=== PATIENT | male | born 1945 | race Caucasian/White ===

== ENCOUNTER 2018-04-10 14:23 | Observation (INO) | payer SELFPAY ==
[2018-04-10 14:23] VITALS: BMI 25.9
[2018-04-10 15:30] LABS: BASO # 0.1 K/uL (0.0-0.2); BASO % 1.2 % (0.0-2.0); EOS # 0.1 K/uL (0.0-0.7); EOS % 1.4 % (0.0-4.0); HEMOGLOBIN 10.1 g/dL (12.0-18.0); LYMPH # 0.6 K/uL (1.0-4.3); LYMPH % 10.6 % (20.0-40.0); MEAN CORPUSCULAR HEMOGLOBIN 26.8 pg (27.0-31.0); MEAN CORPUSCULAR HGB CONC 32.3 g/dL (33.0-37.0); MEAN PLATELET VOLUME 7.8 fl (7.2-11.7); MONO # 0.8 K/uL (0.0-0.8); MONO % 13.7 % (0.0-10.0); NEUT # 4.4 K/uL (1.8-7.0); NEUT % 73.1 % (50.0-75.0); RBC 3.77 Mil/uL (4.40-5.90); RED CELL DISTRIBUTION WIDTH 15.2 % (11.5-14.5)
[2018-04-10 15:36] LABS: MEAN CELL VOLUME 82.9 fl (80.0-94.0)
[2018-04-10 15:37] LABS: INR 1.1; PROTHROMBIN TIME 12.4 Seconds (9.8-13.1)
[2018-04-10 15:39] LABS: PARTIAL THROMBOPLASTIN TIME 35.7 Seconds (25.6-37.1)
[2018-04-10 15:43] LABS: ALB/GLOB RATIO 0.7 (1.0-2.1); ALBUMIN 3.8 g/dL (3.5-5.0); ALT/SGPT 199 U/L (21-72); AST/SGOT 117 U/L (17-59); BLOOD UREA NITROGEN 35 mg/dl (9-20); CALCIUM 9.2 mg/dL (8.4-10.2); GFR NON-AFRICAN AMERICAN > 60
[2018-04-10 15:54] LABS: B-TYPE NATRIURETIC PEPTIDE 67.9 pg/ml (0-900)
[2018-04-10] MEDS ORDERED: Albuterol-Ipratrop 3 mg / 0.5 (3 ml) UD INH STA (16:08)
--- NOTE | 2018-04-10 16:17 | RAD ---
Date of service: 04/10/2018 HISTORY: SOB COMPARISON: No prior. FINDINGS: LUNGS: No active pulmonary disease. PLEURA: No significant pleural effusion identified, no pneumothorax apparent. CARDIOVASCULAR: No atherosclerotic calcification present No radiographic findings to suggest acute or significant cardiovascular disease. OSSEOUS STRUCTURES: No significant abnormalities. VISUALIZED UPPER ABDOMEN: Normal. OTHER FINDINGS: None. IMPRESSION: No active disease.
[2018-04-10] MEDS ORDERED: Sodium Chloride 0.9% 50 ML IV ONE (16:44)
[2018-04-10] MEDS ORDERED: Iodixanol 320 MG/ML 100 ML BOTTLE IV ONE (16:44)
--- NOTE | 2018-04-10 17:23 | CT ---
Date of service: 04/10/2018 PROCEDURE: CT Chest with contrast (Pulmonary Angiogram) HISTORY: dyspnea COMPARISON: None available. TECHNIQUE: Axial computed tomography images were obtained of the chest in the pulmonary arterial phase of enhancement. Coronal and sagittal reformatted images were created and reviewed. Maximum intensity projection (MIP) reconstructed images in the following planes: Sagittal and coronal Intravenous contrast dose: 80 cc Visipaque 320. Mean Hounsfield value in the main pulmonary artery: 372.4 C row Radiation dose: Total exam DLP = 243.79 mGy-cm. This CT exam was performed using one or more of the following dose reduction techniques: Automated exposure control, adjustment of the mA and/or kV according to patient size, and/or use of iterative reconstruction technique. FINDINGS: PULMONARY ARTERIES: Unremarkable. No pulmonary embolism. AORTA: No acute findings. No thoracic aortic aneurysm. No atherosclerotic calcification or mural plaque present. LUNGS: Unremarkable. No nodule, mass or pulmonary consolidation. PLEURAL SPACES: Unremarkable. No effusion or pneumothorax. HEART: Unremarkable. No cardiomegaly. No significant pericardial effusion. LYMPH NODES: No lymphadenopathy. BONES, CHEST WALL: Unremarkable. No fracture or destructive lesion OTHER FINDINGS: Unremarkable. IMPRESSION: Unremarkable CT pulmonary angiogram. No pulmonary embolus.
--- NOTE | 2018-04-10 17:48 | ED PDOC ---
HPI: SOB/CHF/COPD Time Seen by Provider: 04/10/18 14:36 Chief Complaint (Nursing): Shortness Of Breath Chief Complaint (Provider): SOB History Per: Patient, Hand Reamer (Celeste Quinones) Onset/Duration Of Symptoms: Days (3), Gradual Current Symptoms Are (Timing): Still Present Quality: Tightness Exacerbating Factor(s): Exertion, Coughing Current Respiratory Medications: None Severity: Severe Associated Symptoms: Chest Pain, Dizziness. denies: Chills, Productive Cough, Musle Spasms In Hands Or Feet Recently: Hospitalized Additional Complaint(s): 72yo male hx HIV not on medications presents c/o SOB ongoing and worsening for several days. EMS brought paperwork discharge packet from [facility] where he was discharged several days ago with Rx he never filled- spironolactone, ACEI, albuterol, but patient poor historian and hes unaware he needed to fill medications. He admits to mild cough denies hemoptysis, orthopnea or edema. Admits to hx HIV x20yrs hasnt taken meds in >1 years. Arrives w indwelling holley cath and fresh scar to RL groin for ? procedure recently. Past Medical History Reviewed: Historical Data, Nursing Documentation, Vital Signs Vital Signs: Last Vital Signs Temp 98.1 F 04/10/18 14:31 Pulse 87 04/10/18 16:52 Resp 20 04/10/18 16:52 BP 130/78 04/10/18 16:52 Pulse Ox 98 04/10/18 16:52 - Medical History PMH: HIV (Untreated) Denies: CAD, CHF - Surgical History Surgical History: No Surg Hx - Family History Family History: States: Unknown Family Hx - Living Arrangements Living Arrangements: Alone - Social History Current smoker - smoking cessation education provided: Yes Drugs: Denies - Home Medications Home Medications: Ambulatory Orders Medication Instructions Recorded Aspirin [Ecotrin] 81 mg PO DAILY 04/10/18 Carvedilol [Coreg] 6.25 mg PO Q8 04/10/18 Cyanocobalamin [Vitamin B12 1000 1,000 mcg PO DAILY 04/10/18 mcg Tab] Folic Acid 1 mg PO DAILY 04/10/18 Lisinopril [Zestril] 20 mg PO Q12 04/10/18 Spironolactone [Aldactone] 12.5 mg PO DAILY 04/10/18 Sulfamethoxazole/Trimethoprim 1 tab PO MWF 04/10/18 [Bactrim DS Tab] Thiamine [Vitamin B1 Tab] 100 mg PO DAILY 04/10/18 - Allergies Allergies/Adverse Reactions: Allergies Allergy/AdvReac Type Severity Reaction Status Date / Time No Known Allergies Allergy Unverified 04/10/18 14:31 Review of Systems Constitutional: Positive for: Weakness, Malaise. Negative for: Fever ENT: Negative for: Ear Pain, Throat Pain Cardiovascular: Negative for: Chest Pain Respiratory: Positive for: Cough, Shortness of Breath, SOB with Exertion Gastrointestinal: Negative for: Abdominal Pain Genitourinary Male: Negative for: Dysuria Musculoskeletal: Negative for: Neck Pain, Shoulder Pain Skin: Negative for: Rash, Lesions, Jaundice Neurological: Negative for: Weakness, Numbness, Headache Psych: Negative for: Anxiety Physical Exam - Reviewed Nursing Documentation Reviewed: Yes Vital Signs Reviewed: Yes - Physical Exam Appears: Positive for: Well, Non-toxic, No Acute Distress Head Exam: Positive for: ATRAUMATIC, NORMAL INSPECTION, NORMOCEPHALIC Skin: Positive for: Normal Color, Warm, DRY Eye Exam: Positive for: EOMI, Normal appearance, PERRL ENT: Positive for: Normal ENT Inspection Neck: Positive for: Normal, Painless ROM Cardiovascular/Chest: Positive for: Regular Rate, Rhythm Respiratory: Positive for: Decreased Breath Sounds, Wheezing. Negative for: Respiratory Distress Gastrointestinal/Abdominal: Positive for: Normal Exam, Soft Back: Positive for: Normal Inspection Extremity: Positive for: Normal ROM Neurologic/Psych: Positive for: Alert, Oriented - Laboratory Results Result Diagrams: 04/10/18 15:25 04/10/18 15:25 - ECG O2 Sat by Pulse Oximetry: 98 Medical Decision Making Medical Decision Making: Prior charts reviewed last visit Dr Vega 2016, d/w Dr vega rec admitting to FP service if requires. Workup for dyspnea initiated w hx HIV noncompliant meds, tachycardia. Albuterol ordered w some improvement of tachycardia and dyspnea. In paperwork from [facility] ? hx aortic stent placed but patient unaware of procedure he has indwelling [facility] unclear if patient supposed to be on anticoagulation after aortic device place? admit Dr butler obs tele given tachycardia, dyspnea, hx HIV. No PNA on CT Accession No. : [id number] Patient Name / ID : NIMESH HUNT / [id number] Exam Date : 04/10/2018 16:54:44 ( Approved ) Study Comment : Sex / Age : M / [id number] Creator : Carlos Alberto Pierre MD Dictator : Carlos Alberto Pierre MD Lead Presser : Officer Captain : Carlos Alberto Pierre MD Approver2 : Report Date : 04/10/2018 17:19:18 My Comment : Date of service: 04/10/2018 PROCEDURE: CT Chest with contrast (Pulmonary Angiogram) HISTORY: dyspnea COMPARISON: None available. TECHNIQUE: Axial computed tomography images were obtained of the chest in the pulmonary arterial phase of enhancement. Coronal and sagittal reformatted images were created and reviewed. Maximum intensity projection (MIP) reconstructed images in the following planes: Sagittal and coronal Intravenous contrast dose: 80 cc Visipaque 320. Mean Hounsfield value in the main pulmonary artery: 372.4 C row Radiation dose: Total exam DLP = 243.79 mGy-cm. This CT exam was performed using one or more of the following dose reduction techniques: Automated exposure control, adjustment of the mA and/or kV according to patient size, and/or use of iterative reconstruction technique. FINDINGS: PULMONARY ARTERIES: Unremarkable. No pulmonary embolism. AORTA: No acute findings. No thoracic aortic aneurysm. No atherosclerotic calcification or mural plaque present. LUNGS: Unremarkable. No nodule, mass or pulmonary consolidation. PLEURAL SPACES: Unremarkable. No effusion or pneumothorax. HEART: Unremarkable. No cardiomegaly. No significant pericardial effusion. LYMPH NODES: No lymphadenopathy. BONES, CHEST WALL: Unremarkable. No fracture or destructive lesion OTHER FINDINGS: Unremarkable. IMPRESSION: Unremarkable CT pulmonary angiogram. No pulmonary embolus. --- Disposition - Clinical Impression Clinical Impression: Dyspnea, HIV (human immunodeficiency virus infection) - Patient ED Disposition Is Patient to be Admitted: Yes - Disposition Disposition Time: 17:15 Condition: FAIR Forms: [place] (Wallisian) - Pt Status Changed To: Hospital Disposition Of: Observation - POA Present On Arrival: None
[2018-04-10] MEDS ORDERED: Albuterol-Ipratrop 3 mg / 0.5 (3 ml) UD ONE (18:11)
[2018-04-10] MEDS ORDERED: Albuterol-Ipratrop 3 mg / 0.5 (3 ml) UD INH PRN (18:34)
--- NOTE | 2018-04-10 18:56 | CP.PCM.HP ---
<HawthorneTyroneabdirizak - Last Filed: 04/10/18 18:36> History of Present Illness - History of Present Illness History of Present Illness: 72 year old male with pmh of HIV presented to ED with complaints of dyspnea and constipation. Patient endorses dyspnea that began earlier today prompting to call EMS. He no longer feels short of breath. NO chest pain or pressure, no nausea or vomiting. His constipation has been ongoing for past 3 days, but he denies any abdominal pain. Unable to endorse if this is chronic. Patient was admitted to [facility] for about 1 month and discharged 3 days ago. HE states he was admitted for syncopal episode but does not know what any of the discharge instructions were. He states he has holley catheter that has been in place since his admission to the hospital, denies any history of urinary problems. No current urinary symptoms. He does not know of any other medical conditions he has. Pt is a poor historian. He was last seen in [facility] by Dr. Silver in 2015 after review of outpatient chart. Patient states he last saw PMD 3 months ago and has been off his medications due to loss of insurance. Discharge paper work from [facility] reviewed: Dx include Abdominal Aortic Aneurysm, Syncope, Urinary Retention Present on Admission - Present on Admission Any Indicators Present on Admission: No Review of Systems - Review of Systems Systems not reviewed;Unavailable: Other - Constitutional Constitutional: absent: Chills, Fever - EENT Eyes: absent: Blurred Vision, Change in Vision Nose/Mouth/Throat: absent: Nasal Congestion, Nasal Discharge - Cardiovascular Cardiovascular: Dyspnea. absent: Chest Pain - Respiratory Respiratory: Dyspnea. absent: Cough, Wheezing, Chest Congestion, Other - Gastrointestinal Gastrointestinal: Constipation. absent: Abdominal Pain, Nausea, Vomiting - Genitourinary Genitourinary: Other (has holley) Past Patient History - Infectious Disease Hx of Infectious Diseases: None - Past Social History Smoking Status: Heavy Smoker > 10 Cigarettes Daily Alcohol: Occasional Drugs: Denies - CARDIAC Hx Congestive Heart Failure: No - HEMATOLOGICAL/ONCOLOGICAL Hx Human Immunodeficiency Virus (HIV): Yes (Untreated) - PSYCHIATRIC Hx Substance Use: No - ANESTHESIA Hx Anesthesia: No Meds Allergies/Adverse Reactions: Allergies Allergy/AdvReac Type Severity Reaction Status Date / Time No Known Allergies Allergy Unverified 04/10/18 14:31 Physical Exam - Constitutional Appears: Non-toxic - Head Exam Head Exam: ATRAUMATIC, NORMAL INSPECTION, NORMOCEPHALIC - Eye Exam Eye Exam: Normal appearance - Respiratory Exam Respiratory Exam: Decreased Breath Sounds, Clear to Auscultation Bilateral Additional comments: mildy tachypneic and dyspneic - Cardiovascular Exam Cardiovascular Exam: REGULAR RHYTHM, +S1, +S2 - GI/Abdominal Exam GI & Abdominal Exam: Hypoactive Bowel Sounds, Soft. absent: Distended, Guarding, Tenderness - Exam Additional comments: holley catheter in place - Extremities Exam Extremities exam: Negative for: pedal edema, tenderness - Psychiatric Exam Psychiatric exam: Normal Affect, Normal Mood - Skin Skin Exam: Dry, Intact, Normal Color Results - Vital Signs Recent Vital Signs: Last Vital Signs Temp 98.1 F 04/10/18 14:31 Pulse 87 04/10/18 16:52 Resp 20 04/10/18 16:52 BP 130/78 04/10/18 16:52 Pulse Ox 98 04/10/18 17:57 - Labs Result Diagrams: 04/10/18 15:25 04/10/18 15:25 Labs: Laboratory Results - last 24 hr 04/10/18 04/10/18 04/10/18 15:25 15:25 15:25 WBC 6.0 RBC 3.77 L Hgb 10.1 L Hct 31.2 L MCV 82.9 D MCH 26.8 L MCHC 32.3 L RDW 15.2 H Plt Count 318 D MPV 7.8 Neut % (Auto) 73.1 Lymph % (Auto) 10.6 L [place] % (Auto) 13.7 H Eos % (Auto) 1.4 Baso % (Auto) 1.2 Neut # (Auto) 4.4 Lymph # (Auto) 0.6 L [place] # (Auto) 0.8 Eos # (Auto) 0.1 Baso # (Auto) 0.1 PT 12.4 INR 1.1 APTT 35.7 Sodium 138 Potassium 4.8 Chloride 107 Carbon Dioxide 21 L Anion Gap 15 BUN 35 H Creatinine 0.9 Est GFR ( Amer) > 60 Est GFR (Non-Af Amer) > 60 Random Glucose 69 L Calcium 9.2 Total Bilirubin 0.2 AST 117 H ALT 199 H D Alkaline Phosphatase 106 Troponin I 0.0160 NT-Pro-B Natriuret Pep 67.9 Total Protein 8.8 H Albumin 3.8 Globulin 5.0 H Albumin/Globulin Ratio 0.7 L Assessment & Plan - Assessment and Plan (Free Text) Assessment: 72 year old male presented with dyspnea and constipation, admitted for dyspnea, rule out CHF. Given smoking history COPD is in differential. He is afebrile, hemodynamically stable. Will request records from [facility] given pts history of AAA. # Dyspnea # Transaminitis # Constipation # Normocytic Anemia # Urinary Retention # HIV # DVT Prophylaxis -Echo ordered to eval dyspnea -Duonebs q4 -Miralax qhs -Urology consult for urinary retention/holley management. -Resume home medications -will check CD4 count -Lovenox 40 SC daily -Monitor LFTs Patient seen and examined with attending. <Aden Reynaga D - Last Filed: 04/11/18 11:52> Results - Vital Signs Recent Vital Signs: Last Vital Signs Temp 97.6 F 04/11/18 08:25 Pulse 72 04/11/18 10:23 Resp 18 04/11/18 08:25 BP 117/72 04/11/18 10:23 Pulse Ox 96 04/11/18 08:25 - Labs Result Diagrams: 04/11/18 06:00 04/11/18 06:00 Labs: Laboratory Results - last 24 hr 04/10/18 04/10/18 04/10/18 15:25 15:25 15:25 WBC 6.0 RBC 3.77 L Hgb 10.1 L Hct 31.2 L MCV 82.9 D MCH 26.8 L MCHC 32.3 L RDW 15.2 H Plt Count 318 D MPV 7.8 Neut % (Auto) 73.1 Lymph % (Auto) 10.6 L [place] % (Auto) 13.7 H Eos % (Auto) 1.4 Baso % (Auto) 1.2 Neut # (Auto) 4.4 Lymph # (Auto) 0.6 L [place] # (Auto) 0.8 Eos # (Auto) 0.1 Baso # (Auto) 0.1 PT 12.4 INR 1.1 APTT 35.7 Sodium 138 Potassium 4.8 Chloride 107 Carbon Dioxide 21 L Anion Gap 15 BUN 35 H Creatinine 0.9 Est GFR ( Amer) > 60 Est GFR (Non-Af Amer) > 60 Random Glucose 69 L Calcium 9.2 Total Bilirubin 0.2 AST 117 H ALT 199 H D Alkaline Phosphatase 106 Troponin I 0.0160 NT-Pro-B Natriuret Pep 67.9 Total Protein 8.8 H Albumin 3.8 Globulin 5.0 H Albumin/Globulin Ratio 0.7 L Triglycerides Cholesterol LDL Cholesterol Direct HDL Cholesterol 04/11/18 04/11/18 06:00 06:00 WBC 4.8 RBC 3.40 L Hgb 9.1 L Hct 28.1 L MCV 82.5 MCH 26.9 L MCHC 32.5 L RDW 15.4 H Plt Count 302 MPV 7.5 Neut % (Auto) 72.4 Lymph % (Auto) 11.8 L [place] % (Auto) 12.9 H Eos % (Auto) 2.0 Baso % (Auto) 0.9 Neut # (Auto) 3.5 Lymph # (Auto) 0.6 L [place] # (Auto) 0.6 Eos # (Auto) 0.1 Baso # (Auto) 0.0 PT INR APTT Sodium 136 Potassium 4.7 Chloride 104 Carbon Dioxide 26 Anion Gap 11 BUN 30 H Creatinine 0.8 Est GFR ( Amer) > 60 Est GFR (Non-Af Amer) > 60 Random Glucose 82 Calcium 8.8 Total Bilirubin 0.2 AST 107 H ALT 142 H D Alkaline Phosphatase 82 Troponin I NT-Pro-B Natriuret Pep Total Protein 8.0 Albumin 3.4 L Globulin 4.6 H Albumin/Globulin Ratio 0.7 L Triglycerides 60 Cholesterol 139 LDL Cholesterol Direct 96 HDL Cholesterol 27 L Attending/Attestation - Attestation I have personally seen and examined this patient.: Yes I have fully participated in the care of the patient.: Yes I have reviewed all pertinent clinical information: Yes Notes (Text): 04/11/18 11:51 Patient seen and examined with resident. Case discussed and agreed with ass essment and plan of management.
[2018-04-11 07:56] LABS: BASO % 0.9 % (0.0-2.0); EOS # 0.1 K/uL (0.0-0.7); HEMOGLOBIN 9.1 g/dL (12.0-18.0); LYMPH # 0.6 K/uL (1.0-4.3); LYMPH % 11.8 % (20.0-40.0); MEAN CELL VOLUME 82.5 fl (80.0-94.0); MEAN CORPUSCULAR HEMOGLOBIN 26.9 pg (27.0-31.0); MEAN CORPUSCULAR HGB CONC 32.5 g/dL (33.0-37.0); MEAN PLATELET VOLUME 7.5 fl (7.2-11.7); MONO # 0.6 K/uL (0.0-0.8); MONO % 12.9 % (0.0-10.0); NEUT # 3.5 K/uL (1.8-7.0); NEUT % 72.4 % (50.0-75.0); RBC 3.4 Mil/uL (4.40-5.90); RED CELL DISTRIBUTION WIDTH 15.4 % (11.5-14.5); WHITE BLOOD COUNT 4.8 K/uL (4.8-10.8)
[2018-04-11] MEDS ORDERED: Pantoprazole 40 mg EC Tab PO SCH (09:00)
[2018-04-11] MEDS ORDERED: Enoxaparin 40 mg Syringe SC SCH (09:00)
[2018-04-11 09:20] LABS: ALB/GLOB RATIO 0.7 (1.0-2.1); ALBUMIN 3.4 g/dL (3.5-5.0); ALT/SGPT 142 U/L (21-72); AST/SGOT 107 U/L (17-59); BLOOD UREA NITROGEN 30 mg/dl (9-20); CALCIUM 8.8 mg/dL (8.4-10.2); GFR NON-AFRICAN AMERICAN > 60; HDL CHOLESTEROL 27 MG/DL (30-70)
[2018-04-11 09:28] LABS: LDL CHOLESTEROL 96 mg/dL (0-129)
--- NOTE | 2018-04-11 11:12 | CP.PCM.DIS ---
<Angus Harper - Last Filed: 04/11/18 13:16> Provider - Provider Date of Admission: 04/10/18 17:44 Attending physician: Aden Reynaga MD Time Spent in preparation of Discharge (in minutes): 20 Diagnosis - Discharge Diagnosis (1) HIV (human immunodeficiency virus infection) Status: Chronic (2) Dyspnea Status: Resolved Hospital Course - Lab Results Lab Results: Most Recent Lab Values WBC 4.8 K/uL (4.8-10.8) 04/11/18 06:00 RBC 3.40 Mil/uL (4.40-5.90) L 04/11/18 06:00 Hgb 9.1 g/dL (12.0-18.0) L 04/11/18 06:00 Hct 28.1 % (35.0-51.0) L 04/11/18 06:00 MCV 82.5 fl (80.0-94.0) 04/11/18 06:00 MCH 26.9 pg (27.0-31.0) L 04/11/18 06:00 MCHC 32.5 g/dL (33.0-37.0) L 04/11/18 06:00 RDW 15.4 % (11.5-14.5) H 04/11/18 06:00 Plt Count 302 K/uL (130-400) 04/11/18 06:00 MPV 7.5 fl (7.2-11.7) 04/11/18 06:00 Neut % (Auto) 72.4 % (50.0-75.0) 04/11/18 06:00 Lymph % (Auto) 11.8 % (20.0-40.0) L 04/11/18 06:00 [place] % (Auto) 12.9 % (0.0-10.0) H 04/11/18 06:00 Eos % (Auto) 2.0 % (0.0-4.0) 04/11/18 06:00 Baso % (Auto) 0.9 % (0.0-2.0) 04/11/18 06:00 Neut # (Auto) 3.5 K/uL (1.8-7.0) 04/11/18 06:00 Lymph # (Auto) 0.6 K/uL (1.0-4.3) L 04/11/18 06:00 [place] # (Auto) 0.6 K/uL (0.0-0.8) 04/11/18 06:00 Eos # (Auto) 0.1 K/uL (0.0-0.7) 04/11/18 06:00 Baso # (Auto) 0.0 K/uL (0.0-0.2) 04/11/18 06:00 PT 12.4 Seconds (9.8-13.1) 04/10/18 15:25 INR 1.1 04/10/18 15:25 APTT 35.7 Seconds (25.6-37.1) 04/10/18 15:25 Sodium 136 mmol/l (132-148) 04/11/18 06:00 Potassium 4.7 MMOL/L (3.6-5.0) 04/11/18 06:00 Chloride 104 mmol/L (98-107) 04/11/18 06:00 Carbon Dioxide 26 mmol/L (22-30) 04/11/18 06:00 Anion Gap 11 (10-20) 04/11/18 06:00 BUN 30 mg/dl (9-20) H 04/11/18 06:00 Creatinine 0.8 mg/dl (0.8-1.5) 04/11/18 06:00 Est GFR ( Amer) > 60 04/11/18 06:00 Est GFR (Non-Af Amer) > 60 04/11/18 06:00 Random Glucose 82 mg/dL (75-110) 04/11/18 06:00 Calcium 8.8 mg/dL (8.4-10.2) 04/11/18 06:00 Total Bilirubin 0.2 mg/dl (0.2-1.3) 04/11/18 06:00 AST 107 U/L (17-59) H 04/11/18 06:00 ALT 142 U/L (21-72) H D 04/11/18 06:00 Alkaline Phosphatase 82 U/L (38-126) 04/11/18 06:00 Troponin I 0.0160 ng/mL (0.00-0.120) 04/10/18 15:25 NT-Pro-B Natriuret Pep 67.9 pg/ml (0-900) 04/10/18 15:25 Total Protein 8.0 G/DL (6.3-8.2) 04/11/18 06:00 Albumin 3.4 g/dL (3.5-5.0) L 04/11/18 06:00 Globulin 4.6 gm/dL (2.2-3.9) H 04/11/18 06:00 Albumin/Globulin Ratio 0.7 (1.0-2.1) L 04/11/18 06:00 Triglycerides 60 mg/DL (0-149) 04/11/18 06:00 Cholesterol 139 mg/dL (0-199) 04/11/18 06:00 LDL Cholesterol Direct 96 mg/dL (0-129) 04/11/18 06:00 HDL Cholesterol 27 MG/DL (30-70) L 04/11/18 06:00 - Hospital Course Hospital Course: 72 year old male with pmh of HIV presented to ED with complaints of dyspnea and constipation that he reported to ED staff that started yesterday. Patient was admitted to [facility] for about 1 month and discharged 3 days ago. Discharge paper work from [facility] reviewed: Dx include Abdominal Aortic Aneurysm, Syncope, Urinary Retention HE states he was admitted for syncopal episode.He states he has holley catheter that has been in place since his admission to the hospital, denies any history of urinary problems. No current urinary symptoms. Patient has with him a folder with [place] instructions to follow and prescriptions to get from pharmacy. PAtient reports this morning that he has not had any SOB or constipation and he has had normal BM for the last 3 days at home. Patient asymptomatic this morning, hemodynamically stable, labs no leukocytosis, no fever. Patient clear to be discharge and f/u in [facility] with Dr Olivia. He was last seen in [facility] by Dr. Silver in 2015 after review of outpatient chart. Telephone encounter sent to have patient call and see Dr Olivia. Patient verbalized understanging and agree with discharge. Copy of his prescriptions are in paper chart of telemetry as proof pt has medications to get from pharmacy when going out from hospital. Discharge Exam - Head Exam Head Exam: ATRAUMATIC, NORMAL INSPECTION, NORMOCEPHALIC - Eye Exam Eye Exam: Normal appearance - Respiratory Exam Respiratory Exam: Clear to PA & Lateral. absent: Rales, Rhonchi - Cardiovascular Exam Cardiovascular Exam: REGULAR RHYTHM, +S1, +S2 - GI/Abdominal Exam GI & Abdominal Exam: Normal Bowel Sounds - Exam Additional comments: holley present, urine clear. - Neurological Exam Neurological exam: Alert, Oriented x3 - Psychiatric Exam Psychiatric exam: Normal Mood - Skin Skin Exam: Intact Discharge Plan - Follow Up Plan Condition: FAIR Disposition: HOME/ ROUTINE Additional Instructions: -Follow up in [facility] with Dr Fatima. [facility] to have management for your condition and referral for Urologist Dr. Lopez per [facility] Discharge. -You will be called for appointment -Continue with Medications that was prescribed to you by [facility]. <Lizabeth Dela Cruz - Last Filed: 04/12/18 09:47> Provider - Provider Date of Admission: 04/10/18 17:44 Attending physician: Aden Reynaga MD Hospital Course - Lab Results Lab Results: Most Recent Lab Values WBC 4.8 K/uL (4.8-10.8) 04/11/18 06:00 RBC 3.40 Mil/uL (4.40-5.90) L 04/11/18 06:00 Hgb 9.1 g/dL (12.0-18.0) L 04/11/18 06:00 Hct 28.1 % (35.0-51.0) L 04/11/18 06:00 MCV 82.5 fl (80.0-94.0) 04/11/18 06:00 MCH 26.9 pg (27.0-31.0) L 04/11/18 06:00 MCHC 32.5 g/dL (33.0-37.0) L 04/11/18 06:00 RDW 15.4 % (11.5-14.5) H 04/11/18 06:00 Plt Count 302 K/uL (130-400) 04/11/18 06:00 MPV 7.5 fl (7.2-11.7) 04/11/18 06:00 Neut % (Auto) 72.4 % (50.0-75.0) 04/11/18 06:00 Lymph % (Auto) 11.8 % (20.0-40.0) L 04/11/18 06:00 [place] % (Auto) 12.9 % (0.0-10.0) H 04/11/18 06:00 Eos % (Auto) 2.0 % (0.0-4.0) 04/11/18 06:00 Baso % (Auto) 0.9 % (0.0-2.0) 04/11/18 06:00 Neut # (Auto) 3.5 K/uL (1.8-7.0) 04/11/18 06:00 Lymph # (Auto) 0.6 K/uL (1.0-4.3) L 04/11/18 06:00 [place] # (Auto) 0.6 K/uL (0.0-0.8) 04/11/18 06:00 Eos # (Auto) 0.1 K/uL (0.0-0.7) 04/11/18 06:00 Baso # (Auto) 0.0 K/uL (0.0-0.2) 04/11/18 06:00 PT 12.4 Seconds (9.8-13.1) 04/10/18 15:25 INR 1.1 04/10/18 15:25 APTT 35.7 Seconds (25.6-37.1) 04/10/18 15:25 Sodium 136 mmol/l (132-148) 04/11/18 06:00 Potassium 4.7 MMOL/L (3.6-5.0) 04/11/18 06:00 Chloride 104 mmol/L (98-107) 04/11/18 06:00 Carbon Dioxide 26 mmol/L (22-30) 04/11/18 06:00 Anion Gap 11 (10-20) 04/11/18 06:00 BUN 30 mg/dl (9-20) H 04/11/18 06:00 Creatinine 0.8 mg/dl (0.8-1.5) 04/11/18 06:00 Est GFR ( Amer) > 60 04/11/18 06:00 Est GFR (Non-Af Amer) > 60 04/11/18 06:00 Random Glucose 82 mg/dL (75-110) 04/11/18 06:00 Calcium 8.8 mg/dL (8.4-10.2) 04/11/18 06:00 Total Bilirubin 0.2 mg/dl (0.2-1.3) 04/11/18 06:00 AST 107 U/L (17-59) H 04/11/18 06:00 ALT 142 U/L (21-72) H D 04/11/18 06:00 Alkaline Phosphatase 82 U/L (38-126) 04/11/18 06:00 Troponin I 0.0160 ng/mL (0.00-0.120) 04/10/18 15:25 NT-Pro-B Natriuret Pep 67.9 pg/ml (0-900) 04/10/18 15:25 Total Protein 8.0 G/DL (6.3-8.2) 04/11/18 06:00 Albumin 3.4 g/dL (3.5-5.0) L 04/11/18 06:00 Globulin 4.6 gm/dL (2.2-3.9) H 04/11/18 06:00 Albumin/Globulin Ratio 0.7 (1.0-2.1) L 04/11/18 06:00 Triglycerides 60 mg/DL (0-149) 04/11/18 06:00 Cholesterol 139 mg/dL (0-199) 04/11/18 06:00 LDL Cholesterol Direct 96 mg/dL (0-129) 04/11/18 06:00 HDL Cholesterol 27 MG/DL (30-70) L 04/11/18 06:00 Attending/Attestation - Attestation I have personally seen and examined this patient.: Yes I have fully participated in the care of the patient.: Yes I have reviewed all pertinent clinical information, including history, physical exam and plan: Yes Notes (Text): 04/12/18 09:47 Agree with findings and plan as above. Stable for discharg ehome.
--- NOTE | 2018-04-11 12:13 | CARD ---
APPROVED REPORT Date of service: 04/10/2018 EKG Measurement Heart [id number] ND [id number] <Conclusion> Sinus tachycardia Left bundle branch block Abnormal ECG
--- NOTE | 2018-04-11 12:44 | CARD ---
APPROVED REPORT Date of service: 04/11/2018 EXAM: Two-dimensional and M-mode echocardiogram with Doppler and color Doppler. Other Information Quality : GoodRhythm : NSR INDICATION Dyspnea 2D DIMENSIONS IVSd1.26 (0.7-1.1cm)LVDd5.10 (3.9-5.9cm) LVOT Diameter2.13 (1.8-2.4cm)PWd0.86 (0.7-1.1cm) IVSs1.06 (0.8-1.2cm)LA Hnqmdh93 (18-58mL) LVDs4.33 (2.5-4.0cm)FS (%) 15.1 % PWs1.47 (0.8-1.2cm)SV41.54 ml LVEF (%)26.7 (>50%)CO3.02 L/min Aortic Valve AoV Peak Myhnaasd971.6cm/sAoV VTI17.8cmAO Peak GR.5mmHg LVOT Peak Jcruoohb93.5cm/sLVOT VTI13.17cmAO Mean GR.3mmHg PARISA (VMAX)1.23fy1NMT (VTI)1.54cm2 Mitral Valve MV E Uragvzst66.5cm/sMV E Peak Gr.45mmHgMV DECEL HYVM779ae MV A Ikqsmhpq48.7cm/sMV GYJ74ycG/A ratio0.5 MVA (PHT)2.73cm2 TDI Medial E' Peak V3.37cm/sE/Lateral E'0.0E/Medial E'10.5 Pulmonary Valve RVOT VTI11.9cm Tricuspid Valve TR Peak Tkzdhfjb976gb/sTR Peak Gr.81znCtRQIB42seMb LEFT VENTRICLE The left ventricle is normal size. There is normal left ventricular wall thickness. The systolic function is severely impaired. The estimated ejection fraction is 25-30% There is global hypokinesis of the left ventricle. Transmitral Doppler flow pattern is Grade I-abnormal relaxation pattern. No left ventricle thrombus noted on this study. There is no ventricular septal defect visualized. There is no left ventricular aneurysm. There is no mass noted in the left ventricle. RIGHT VENTRICLE The right ventricle is normal size. There is normal right ventricular wall thickness. The right ventricular systolic function is normal. ATRIA The left atrium is mildly dilated. The right atrium size is normal. The interatrial septum is intact with no evidence for an atrial septal defect. AORTIC VALVE The aortic valve is normal in structure. No aortic regurgitation is present. There is no aortic valvular stenosis. There is no aortic valvular vegetation. MITRAL VALVE The mitral valve is normal in structure. There is no evidence of mitral valve prolapse. There is no mitral valve stenosis. There is trace to mild mitral valve regurgitation noted. TRICUSPID VALVE The tricuspid valve is normal in structure. There is mild tricuspid valve regurgitation noted. RVSP is calculated at 32 mm Hg. There is no tricuspid valve prolapse or vegetation. There is no tricuspid valve stenosis. PULMONIC VALVE The pulmonary valve is normal in structure. There is trace pulmonic valvular regurgitation. There is no pulmonic valvular stenosis. GREAT VESSELS The aortic root is normal in size. The ascending aorta is normal in size. The pulmonary artery is normal. The IVC is normal in size and collapses >50% with inspiration. PERICARDIAL EFFUSION There is no pericardial effusion. There is no pleural effusion. <Conclusion> The systolic function is severely impaired. The estimated ejection fraction is 25-30%. There is global hypokinesis of the left ventricle. Transmitral Doppler flow pattern is Grade I-abnormal relaxation pattern. The left atrium is mildly dilated. There is trace to mild mitral valve regurgitation noted. There is mild tricuspid valve regurgitation noted. RVSP is calculated at 32 mm Hg.
[2018-04-11 18:25] VITALS: BP 120/70; PULSE 76; RESP 20; TEMP 97; O2SAT 99
[2018-04-13] MEDS ORDERED: Tmp-Smz 800 mg-160 mg DS Tab PO SCH (09:00)
== END 2018-04-11 18:00 | disposition home or self-care (01) ==
LOC: H.ER 14:23 → H.ERHOLD 17:44 → INTOOBSV 17:44 → H.TEL 21:05
DX: R06.00 Dyspnea, unspecified (principal); I71.4 Abdominal aortic aneurysm, without rupture; J44.9 Chronic obstructive pulmonary disease, unspecified; K59.00 Constipation, unspecified; Z79.82 Long term (current) use of aspirin; Z91.19 Patient's noncompliance with other medical treatment and regimen; R00.0 Tachycardia, unspecified; R33.9 Retention of urine, unspecified; R74.0 Nonspecific elevation of levels of transaminase and lactic acid dehydrogenase [LDH]; Z21 Asymptomatic human immunodeficiency virus [HIV] infection status; D64.9 Anemia, unspecified; F17.200 Nicotine dependence, unspecified, uncomplicated
CPT/HCPCS: 36415; 71045; 71275; 80053; 80061; 83880; 84484; 85025; 85610; 85730; 86360; 93005; 93306; 99285; G0378; J1650; J2270; Q9967

== ENCOUNTER 2018-04-13 13:41 | Emergency (ER) | payer OTHER ==
[2018-04-13 13:41] VITALS: BMI 25.9
--- NOTE | 2018-04-13 15:17 | ED PDOC ---
HPI: SOB/CHF/COPD Time Seen by Provider: 04/13/18 14:41 Chief Complaint (Nursing): Shortness Of Breath Chief Complaint (Provider): Shortness Of Breath History Per: Patient History/Exam Limitations: no limitations Onset/Duration Of Symptoms: Days Current Symptoms Are (Timing): Still Present Recently: Hospitalized Additional Complaint(s): 72 y/o male with a PMHx of HIV positive and an Abdominal Aortic Aneurysm presents to the ED complaining of persistent shortness of breath and dizziness. Patient was recent discharged from the hospital on 04/11/2018. Patient had been hospitalized at [facility] prior to that for approximately one month. Patient denies cough and chest pain. PMD: Clinic Past Medical History Reviewed: Historical Data, Nursing Documentation, Vital Signs Vital Signs: Last Vital Signs Temp 98.8 F 04/13/18 13:57 Pulse 96 H 04/13/18 13:57 Resp 20 04/13/18 13:57 BP 146/96 H 04/13/18 13:57 Pulse Ox 100 04/13/18 14:32 - Medical History PMH: CHF, COPD, HIV Denies: CAD, Chronic Kidney Disease Other PMH: Abdominal Aortic Aneurysm - Surgical History Surgical History: No Surg Hx - Family History Family History: States: Unknown Family Hx - Home Medications Home Medications: Ambulatory Orders Medication Instructions Recorded Cyanocobalamin [Vitamin B12 1000 1,000 mcg PO DAILY 04/10/18 mcg Tab] RX: Aspirin [Ecotrin] 81 mg PO DAILY 04/10/18 RX: Carvedilol [Coreg] 6.25 mg PO Q8 04/10/18 RX: Folic Acid 1 mg PO DAILY 04/10/18 RX: Lisinopril [Zestril] 20 mg PO Q12 04/10/18 RX: Spironolactone [Aldactone] 12.5 mg PO DAILY 04/10/18 RX: Sulfamethoxazole/Trimethoprim 1 tab PO MWF 04/10/18 [Bactrim DS Tab] RX: Thiamine [Vitamin B1 Tab] 100 mg PO DAILY 04/10/18 - Allergies Allergies/Adverse Reactions: Allergies Allergy/AdvReac Type Severity Reaction Status Date / Time No Known Allergies Allergy Unverified 04/10/18 14:31 Review of Systems ROS Statement: Except As Marked, All Systems Reviewed And Found Negative Cardiovascular: Negative for: Chest Pain Respiratory: Positive for: Shortness of Breath. Negative for: Cough Neurological: Positive for: Dizziness Physical Exam - Reviewed Nursing Documentation Reviewed: Yes Vital Signs Reviewed: Yes - Physical Exam Appears: Positive for: No Acute Distress Head Exam: Positive for: ATRAUMATIC Skin: Positive for: Normal Color, Warm Eye Exam: Positive for: Normal appearance, EOMI, PERRL Neck: Positive for: Normal, Painless ROM Cardiovascular/Chest: Positive for: Regular Rate, Rhythm. Negative for: Murmur Respiratory: Positive for: Rhonchi (Scattered rhonchi ). Negative for: Wheezing, Respiratory Distress Gastrointestinal/Abdominal: Positive for: Soft. Negative for: Tenderness, Mass Extremity: Positive for: Normal ROM. Negative for: Tenderness, Swelling - Laboratory Results Result Diagrams: 04/13/18 15:17 04/13/18 17:46 - ECG O2 Sat by Pulse Oximetry: 100 (RA) Pulse Ox Interpretation: Normal Medical Decision Making Medical Decision Making: Time: 1515 Plan: -- CMP -- CBC with Differentials -- CXR Two Views Scribe Attestation: Documented by Danny Colvin, acting as a scribe for Franklin Boone MD. Provider Scribe Attestation: All medical record entries made by the Scribe were at my direction and personally dictated by me. I have reviewed the chart and agree that the record accurately reflects my personal performance of the history, physical exam, medical decision making, and the department course for this patient. I have also personally directed, reviewed, and agree with the discharge instructions and disposition. Disposition - Clinical Impression Clinical Impression: Dyspnea - Patient ED Disposition Is Patient to be Admitted: Transfer of Care - Disposition Referrals: [facility] [Outside] Disposition: Transfer of Care Disposition Time: 17:00 Condition: STABLE Instructions: Shortness of Breath (Dyspnea) Forms: [employer] (Tajik) Print Language: CITIZEN OF [place] Patient Signed Over To: Iram Dodd
[2018-04-13 15:30] LABS: BASO # 0.1 K/uL (0.0-0.2); BASO % 0.9 % (0.0-2.0); EOS # 0.1 K/uL (0.0-0.7); EOS % 1.3 % (0.0-4.0); HEMOGLOBIN 10.1 g/dL (12.0-18.0); LYMPH # 0.8 K/uL (1.0-4.3); LYMPH % 11.6 % (20.0-40.0); MEAN CELL VOLUME 82.1 fl (80.0-94.0); MEAN CORPUSCULAR HEMOGLOBIN 27.1 pg (27.0-31.0); MEAN CORPUSCULAR HGB CONC 33.1 g/dL (33.0-37.0); MEAN PLATELET VOLUME 7.8 fl (7.2-11.7); MONO # 0.7 K/uL (0.0-0.8); NEUT # 5.1 K/uL (1.8-7.0); NEUT % 76.2 % (50.0-75.0); NRBC % 0.1 % (0.0-0.0); RBC 3.71 Mil/uL (4.40-5.90); RED CELL DISTRIBUTION WIDTH 15.6 % (11.5-14.5); WHITE BLOOD COUNT 6.7 K/uL (4.8-10.8)
[2018-04-13 15:47] LABS: ALB/GLOB RATIO 0.8 (1.0-2.1); ALBUMIN 3.7 g/dL (3.5-5.0); ALT/SGPT 83 U/L (21-72); AST/SGOT 37 U/L (17-59); BLOOD UREA NITROGEN 23 mg/dl (9-20); CALCIUM 9.1 mg/dL (8.4-10.2); GFR NON-AFRICAN AMERICAN > 60
--- NOTE | 2018-04-13 17:02 | RAD ---
Date of service: 04/13/2018 HISTORY: SOB COMPARISON: No prior. TECHNIQUE: Chest PA and lateral FINDINGS: LUNGS: No acute infiltrate bilaterally. Hyperlucent lung suarez are reiterated with increased AP chest diameter and flattened hemidiaphragms suspicious for COPD. PLEURA: No significant pleural effusion identified. No pneumothorax apparent. CARDIOVASCULAR: No atherosclerotic calcification present Normal. OSSEOUS STRUCTURES: No significant abnormalities. VISUALIZED UPPER ABDOMEN: Superior segment of aortic iliac stent graft is identified. OTHER FINDINGS: None. IMPRESSION: COPD in question. No acute cardiopulmonary changes identified in the interval.
--- NOTE | 2018-04-13 18:02 | ED PDOC ---
- Laboratory Results Result Diagrams: 04/13/18 15:17 04/13/18 17:46 - ECG O2 Sat by Pulse Oximetry: 100 (RA) Pulse Ox Interpretation: Normal Medical Decision Making Medical Decision Making: Time: 1700 -- Patient endorsed to me by Dr. Boone, pending repeat potassium. Scribe Attestation: Documented by Danny Colvin, acting as a scribe for Iram Dodd MD. Provider Scribe Attestation: All medical record entries made by the Scribe were at my direction and personally dictated by me. I have reviewed the chart and agree that the record accurately reflects my personal performance of the history, physical exam, medical decision making, and the department course for this patient. I have also personally directed, reviewed, and agree with the discharge instructions and disposition. Disposition - Clinical Impression Clinical Impression: Dyspnea - POA Present On Arrival: None - Disposition Referrals: [facility] [Outside] Disposition: Routine/Home Disposition Time: 18:30 Condition: STABLE Instructions: Shortness of Breath (Dyspnea) Forms: [employer] (Chinese) Print Language: PORTUGUESE
[2018-04-13 18:18] LABS: ALB/GLOB RATIO 0.8 (1.0-2.1); ALBUMIN 3.8 g/dL (3.5-5.0); ALT/SGPT 86 U/L (21-72); AST/SGOT 37 U/L (17-59); BLOOD UREA NITROGEN 25 mg/dl (9-20); CALCIUM 9.3 mg/dL (8.4-10.2); GFR NON-AFRICAN AMERICAN > 60
[2018-04-13 18:20] VITALS: RESP 19
[2018-04-13 18:41] VITALS: BP 120/78; PULSE 78; TEMP 97
[2018-04-14 09:49] VITALS: O2SAT 100
== END 2018-04-13 18:41 | disposition home or self-care (01) ==
LOC: H.ER 13:41
DX: J44.9 Chronic obstructive pulmonary disease, unspecified (principal)

== ENCOUNTER 2018-05-23 07:22 | Emergency (ER) | payer OTHER ==
[2018-05-23 08:06] VITALS: BMI 25.7
[2018-05-23 08:13] VITALS: RESP 18; TEMP 97; O2SAT 98
[2018-05-23 09:17] LABS: URINE AMORPHOUS SEDIMENT OCC /ul (<OCC); URINE BACTERIA MANY (<OCC); URINE BILIRUBIN NEGATIVE (NEGATIVE); URINE BLOOD SMALL (NEGATIVE); URINE CLARITY TURBID (Clear); URINE COLOR YELLOW (YELLOW); URINE GLUCOSE (UA) NEG (Normal); URINE LEUKOCYTE ESTERASE LARGE Leu/uL (Negative); URINE PROTEIN NEGATIVE (NEGATIVE); URINE UROBILINOGEN 0.2-1.0 mg/dL (0.2-1.0); WBC CLUMPS FEW /hpf
--- NOTE | 2018-05-23 09:32 | ED PDOC ---
HPI: Male Pain Time Seen by Provider: 05/23/18 07:25 Chief Complaint (Nursing): Male Genitourinary Chief Complaint (Provider): Male Genitourinary History Per: Patient History/Exam Limitations: no limitations Onset/Duration Of Symptoms: Days (x1) Current Symptoms Are (Timing): Still Present Additional Complaint(s): 72 y/o male with a PMHx of HIV, CHF and COPD presents to the ED for evaluation of urinary frequency, onset yesterday. Patient was seen in the ER on 04/26 for urinary retention and a UTI and discharged home with a holley catheter. Yesterday, patient was evaluated at [facility] for a holley catheter removal. Patient was advised to follow up with a urologist. Today, patient presents to the ED complaining of urinary frequency. Otherwise patient denies abdominal pain, dysuria, diarrhea, nausea, vomiting, testicular pain and any other complaints. PMD: non [facility] Provider Past Medical History Reviewed: Historical Data, Nursing Documentation, Vital Signs Vital Signs: Last Vital Signs Temp 97 F L 05/23/18 08:06 Pulse 83 05/23/18 08:06 Resp 18 05/23/18 08:06 BP 177/105 H 05/23/18 08:06 Pulse Ox 98 05/23/18 08:06 - Medical History PMH: CHF, COPD, HIV Denies: CAD, Chronic Kidney Disease - Surgical History Surgical History: No Surg Hx - Family History Family History: States: Unknown Family Hx - Home Medications Home Medications: Ambulatory Orders Medication Instructions Recorded Aspirin [Ecotrin] 81 mg PO DAILY 04/10/18 Carvedilol [Coreg] 6.25 mg PO Q8 04/10/18 Cyanocobalamin [Vitamin B12 1000 1,000 mcg PO DAILY 04/10/18 mcg Tab] Folic Acid 1 mg PO DAILY 04/10/18 Lisinopril [Zestril] 20 mg PO Q12 04/10/18 Spironolactone [Aldactone] 12.5 mg PO DAILY 04/10/18 Sulfamethoxazole/Trimethoprim 1 tab PO MWF 04/10/18 [Bactrim DS Tab] Thiamine [Vitamin B1 Tab] 100 mg PO DAILY 04/10/18 Nitrofurantoin Macrocrystals 100 mg PO BID #10 cap 05/23/18 [Macrobid] - Allergies Allergies/Adverse Reactions: Allergies Allergy/AdvReac Type Severity Reaction Status Date / Time No Known Allergies Allergy Unverified 04/10/18 14:31 Review of Systems ROS Statement: Except As Marked, All Systems Reviewed And Found Negative Gastrointestinal: Negative for: Nausea, Vomiting, Abdominal Pain, Diarrhea Genitourinary Male: Positive for: Frequency. Negative for: Dysuria, Other (TESTICULAR PAIN) Physical Exam - Reviewed Nursing Documentation Reviewed: Yes Vital Signs Reviewed: Yes - Physical Exam Appears: Positive for: No Acute Distress Head Exam: Positive for: ATRAUMATIC, NORMOCEPHALIC Skin: Positive for: Normal Color, Warm, Dry Eye Exam: Positive for: Normal appearance Neck: Positive for: Normal, Painless ROM Cardiovascular/Chest: Positive for: Regular Rate, Rhythm. Negative for: Murmur Respiratory: Positive for: Normal Breath Sounds. Negative for: Respiratory Distress Gastrointestinal/Abdominal: Positive for: Normal Exam, Soft. Negative for: Tenderness Back: Positive for: Normal Inspection Extremity: Positive for: Normal ROM Neurologic/Psych: Positive for: Alert, Oriented. Negative for: Motor/Sensory Deficits - ECG O2 Sat by Pulse Oximetry: 98 (RA) Pulse Ox Interpretation: Normal Medical Decision Making Medical Decision Making: Time: 851 Plan: -- ED Urine Dipstick -- ED Urine Culture -- Nursing Communication (bladder scan) -- Urinalysis Time: 852 -- Patient is stable and reports of improvement in symptoms. Patient is alert, orientx3 with no pain. Patient is urinating about 100 CCs with no complication. 250 CCs noted in bladder obtained from the bladder scan. Scribe Attestation: Documented by Danny Colvin, acting as a scribe for Brando Camp MD. Provider Scribe Attestation: All medical record entries made by the Scribe were at my direction and personally dictated by me. I have reviewed the chart and agree that the record accurately reflects my personal performance of the history, physical exam, medical decision making, and the department course for this patient. I have also personally directed, reviewed, and agree with the discharge instructions and disposition. Disposition - Clinical Impression Clinical Impression: Urinary tract infection - Disposition Referrals: [facility] [Outside] - 05/25/18 Condition: STABLE Additional Instructions: Return if not better in 3 days. Prescriptions: Nitrofurantoin Macrocrystals [Macrobid] 100 mg PO BID #10 cap Instructions: Urinary Tract Infection, Adult (DC) Print Language: JAPANESE
[2018-05-23 09:38] VITALS: BP 154/78; PULSE 80
== END 2018-05-23 09:35 | disposition home or self-care (01) ==
LOC: H.ER 07:22
DX: N39.0 Urinary tract infection, site not specified (principal); J44.9 Chronic obstructive pulmonary disease, unspecified